=== PATIENT | female | born 1985 | race Caucasian/White ===

== ENCOUNTER 2017-11-07 06:50 | Emergency (ER) | payer BC ==
[2017-11-07] MEDS: IBUPROFEN 800 MG TAB PO (07:44)
== END 2017-11-07 08:23 | disposition home or self-care (01) ==
LOC: E/R 06:50
DX: S20.212A Contusion of left front wall of thorax, initial encounter (principal); V89.2XXA Person injured in unspecified motor-vehicle accident, traffic, initial encounter
CPT/HCPCS: 99283

== ENCOUNTER 2018-07-10 10:23 | Inpatient (IN) | payer OTHER, BC ==
[2018-07-10 11:47] LABS: ADD MAN DIFF? NO
[2018-07-10 11:50] LABS: BASOPHILS % 0.4 % (0.0-2.0); EOSINOPHILS # 0.3 10^3/ul (0.0-0.5); HEMATOCRIT 34.1 % (37.0-47.0); HEMOGLOBIN 11.7 g/dl (12.0-16.0); LYMPHOCYTES # 1.6 10^3/ul (0.8-2.9); LYMPHOCYTES % 20.8 % (15.0-51.0); MEAN CORPUSCULAR HEMOGLOBIN 31.3 pg (29.0-33.0); MEAN CORPUSCULAR HGB CONC 34.3 g/dl (32.0-37.0); MEAN CORPUSCULAR VOLUME 91.2 fl (82.0-101.0); MEAN PLATELET VOLUME 9.1 fl (7.4-10.4); MONOCYTE # 0.6 10^3/ul (0.3-0.9); MONOCYTES % 7.9 % (0.0-11.0); NEUTROPHILS % 66.2 % (39.0-77.0); PLATELET COUNT 205 10^3/UL (140-415); RED BLOOD COUNT 3.74 10^6/ul (4.20-5.40); RED CELL DISTRIBUTION WIDTH 13.6 % (11.5-14.5)
[2018-07-10 11:50] LABS: WHITE BLOOD COUNT 7.6 10^3/ul (4.8-10.8)
[2018-07-10 12:00] LABS: ADD UMIC YES; UR ASCORBIC ACID NEGATIVE (NEGATIVE); UR BACTERIA FEW /HPF (NONE SEEN); UR BILIRUBIN (Dip) NEGATIVE (NEGATIVE); UR BLOOD (Dip) NEGATIVE (NEGATIVE); UR CLARITY CLEAR (CLEAR); UR COLOR YELLOW (YELLOW); UR GLUCOSE (Dip) NEGATIVE (NEGATIVE); UR KETONES (Dip) NEGATIVE (NEGATIVE); UR LEUKOCYTE ESTERASE (Dip) 3+ Leu/ul (NEGATIVE); UR NITRITE (Dip) NEGATIVE (NEGATIVE); UR RBC 0 /HPF (0-5); UR SQUAMOUS EPITHELIAL CELL FEW /HPF (FEW); UR TOTAL PROTEIN (Dip) NEGATIVE (NEGATIVE); UR UROBILINOGEN (Dip) NEGATIVE (NEGATIVE); UR WBC 3 /HPF (0-5)
[2018-07-10] MEDS ORDERED: ACETAMINOPHEN 325 MG TAB PO (13:30)
[2018-07-10] MEDS: BETAMET NA PHOS/AC(6 MG/ML) 2 ML INJ SYG IM (13:47)
[2018-07-10] MEDS: LACTATED RINGER'S 1,000 ML IV ×2 (13:54→21:16)
[2018-07-10] MEDS: MAGNESIUM SULFATE 4 GM/100 ML 100 ML IV (14:29)
[2018-07-10] MEDS: MAGNESIUM SULFATE 20 GM/500 ML 500 ML IV (14:55)
[2018-07-10] MEDS ORDERED: ALBUTEROL HFA 8 GM INHALER INH (16:00)
[2018-07-10 21:13] LABS: MAGNESIUM 4.8 mg/dl (1.7-2.5)
[2018-07-11] MEDS: PRENATAL VITAMIN PO
[2018-07-11] MEDS: MAGNESIUM SULFATE 20 GM/500 ML 500 ML IV (00:25)
[2018-07-11] MEDS ORDERED: ACETAMINOPHEN 325 MG TAB PO (00:30)
[2018-07-11] MEDS ORDERED: PRENATAL VITAMIN (00:39)
[2018-07-11 00:56] LABS: MAGNESIUM 5.4 mg/dl (1.7-2.5)
[2018-07-11 07:35] LABS: MAGNESIUM 5.9 mg/dl (1.7-2.5)
[2018-07-11] MEDS: LACTATED RINGER'S 1,000 ML IV (08:40)
[2018-07-11] MEDS: BETAMET NA PHOS/AC(6 MG/ML) 2 ML INJ SYG IM (13:40)
== END 2018-07-11 14:00 | disposition home or self-care (01) | DRG 833 ==
LOC: OBT 10:23 → L-D 10:24 → OBT 12:44 → L-D 11:15
PROVIDERS: Obstetrics & Gynecology
DX: O46.92 Antepartum hemorrhage, unspecified, second trimester (principal); Z3A.25 25 weeks gestation of pregnancy
CPT/HCPCS: 76815; 76817; 81001; 82731; 83735; 85025; 86850; 86900; 86901